=== PATIENT | female | born 1990 | race Caucasian/White ===

== ENCOUNTER 2017-04-04 17:46 | Emergency (ER) | payer OTHER ==
[2017-04-04 19:56] LABS: BASOPHIL 0.7 % (0-2); EOSINOPHIL 0.3 % (0-5); HCT 34.5 % (37.0-47.0); HGB 12.3 g/dl (12.5-16.0); LYMPHOCYTE 38.9 % (15-48); MCH 29.4 pg (25.0-31.0); MCHC 35.7 g/dL (32.0-36.0); MCV 82.5 fL (78.0-100.0); MONOCYTE 9.7 % (0-12); MPV 9.1 fL (6.0-9.5); NEUTROPHIL 50.4 % (41-80); PLT 248 K/uL (150-400); RBC 4.18 M/uL (4.20-5.40); RDW 15.1 % (11.5-14.0); WBC 6.1 K/uL (4.0-10.5)
[2017-04-04 20:24] LABS: BILIRUBIN - TOTAL 0.5 mg/dL (0.1-1.0); CREATININE 0.6 mg/dL (0.5-1.0); GLOBULIN (CALCULATION) 3.5 g/dL (2.2-4.2); TOTAL PROTEIN 7.5 g/dL (6.4-8.3)
[2017-04-04 20:35] LABS: BILIRUBIN 2+ mg/dL (NEGATIVE); BLOOD NEGATIVE Ery/uL (NEGATIVE); CLARITY CLEAR (CLEAR); COLOR YELLOW (YELLOW); GLUCOSE (U) NORMAL (NORMAL); KETONE (U) 3+ (LARGE) mg/dL (NEGATIVE); LEUKOCYTES NEGATIVE Leu/uL (NEGATIVE); NITRITE NEGATIVE (NEGATIVE); PROTEIN TRACE (LOW) mg/dL (NEGATIVE); SPECIFIC GRAVITY 1.025 (1.001-1.030); pH 5.5 (5.0-9.0)
== END 2017-04-05 00:38 | disposition home or self-care (01) ==
LOC: FER 17:46
PROVIDERS: Emergency Medicine Emergency Medical Services
DX: B37.9 Candidiasis, unspecified (principal); E87.6 Hypokalemia; R11.2 Nausea with vomiting, unspecified; Z88.2 Allergy status to sulfonamides
CPT/HCPCS: 36415; 80053; 81003; 82150; 83605; 83690; 85025; 87210; J1885; J2270; J2405; Q9967

== ENCOUNTER 2022-07-23 13:14 | Emergency (ER) | payer OTHER ==
[2022-07-23 14:31] LABS: BASOPHIL 0.3 % (0-2); EOSINOPHIL 0.2 & (0-5); HCT 36.4 % (37.0-47.0); HGB 12.5 g/dl (12.5-16.0); LYMPHOCYTE 21.3 % (15-48); MCH 29.5 pg (25.0-31.0); MCHC 34.3 g/dL (32.0-36.0); MCV 85.8 fL (78.0-100.0); MONOCYTE 5.8 % (0-12); MPV 8.8 fL (6.0-9.5); NEUTROPHIL 72.2 % (41-80); PLT 368 K/uL (150-400); RBC 4.24 M/uL (4.20-5.40); WBC 11.25 K/uL (4.0-10.5)
[2022-07-23 14:34] LABS: PROTHROMBIN TIME 12.9 SECONDS (11.9-13.9)
[2022-07-23 14:49] LABS: ALBUMIN 3.7 g/dL (3.4-5.0); ALKALINE PHOSHATASE 92 U/L (46-116); ALT 19 U/L (14-59); AST 18 U/L (15-37); BILIRUBIN - TOTAL 0.6 mg/dL (0.2-1.0); BUN 12 mg/dL (7-18); BUN/CREAT RATIO (CALC) 16.4 RATIO; CHLORIDE 99 mmol/L (98-107); CO2 (BICARBONATE) 32 mmol/L (21-32); CREATININE 0.73 mg/dL (0.51-0.95); GLUCOSE 98 mg/dL (74-106); TOTAL PROTEIN 7.7 g/dL (6.4-8.2)
[2022-07-23 14:54] LABS: CORONAVIRUS 2019 SARS-COV-2 NEGATIVE (NEGATIVE); INFLUENZA A NAA NEGATIVE (NEGATIVE)
[2022-07-23 15:03] LABS: AMPHETAMINES NEGATIVE (NEGATIVE); BARBITURATES NEGATIVE (NEGATIVE); ECSTASY (MDMA) NEGATIVE (NEGATIVE); MARIJUANA (THC) NEGATIVE (NEGATIVE); METHADONE NEGATIVE (NEGATIVE); OPIATES NEGATIVE (NEGATIVE); OXYCODONE NEGATIVE (NEGATIVE)
== END 2022-07-23 17:07 | disposition home or self-care (01) ==
LOC: FER 13:14
PROVIDERS: Internal Medicine
DX: R20.2 Paresthesia of skin (principal); E87.6 Hypokalemia; Z20.822 Contact with and (suspected) exposure to COVID-19
CPT/HCPCS: 36415; 70450; 80053; 80305; 82140; 83605; 84484; 85025; 85610; 85730; 93005; G0480; J2060; J2405; J3475; J7030; U0002